=== PATIENT | female | born 1965 | race Caucasian/White ===

== ENCOUNTER 2017-12-26 12:10 | Emergency (ER) | payer OTHER ==
[2017-12-26] MEDS: KETOROLAC 30 MG INJ IV (14:33)
[2017-12-26 14:36] LABS: UR BACTERIA FEW /HPF (NONE SEEN); UR RBC 0 /HPF (0-5); UR WBC 1 /HPF (0-5)
[2017-12-26 14:40] LABS: ADD MAN DIFF? NO
[2017-12-26 14:43] LABS: ADD UMIC YES; UR ASCORBIC ACID NEGATIVE (NEGATIVE); UR BILIRUBIN (Dip) NEGATIVE (NEGATIVE); UR BLOOD (Dip) 1+ mg/dL (NEGATIVE); UR CLARITY CLEAR (CLEAR); UR COLOR YELLOW (YELLOW); UR GLUCOSE (Dip) NEGATIVE (NEGATIVE); UR KETONES (Dip) NEGATIVE (NEGATIVE); UR LEUKOCYTE ESTERASE (Dip) NEGATIVE Leu/ul (NEGATIVE); UR NITRITE (Dip) NEGATIVE (NEGATIVE); UR SPECIFIC GRAVITY (Dip) 1.011 (1.003-1.030); UR TOTAL PROTEIN (Dip) NEGATIVE (NEGATIVE); UR UROBILINOGEN (Dip) NEGATIVE (NEGATIVE)
[2017-12-26 14:44] LABS: WHITE BLOOD COUNT 5.3 10^3/ul (4.8-10.8)
[2017-12-26 14:44] LABS: BASOPHILS % 0.4 % (0.0-2.0); EOSINOPHILS # 0.1 10^3/ul (0.0-0.5); EOSINOPHILS % 2.3 % (0.0-7.0); HEMATOCRIT 35.2 % (37.0-47.0); HEMOGLOBIN 11.9 g/dl (12.0-16.0); LYMPHOCYTES # 1.2 10^3/ul (0.8-2.9); MEAN CORPUSCULAR HEMOGLOBIN 29.9 pg (29.0-33.0); MEAN CORPUSCULAR HGB CONC 33.8 g/dl (32.0-37.0); MEAN CORPUSCULAR VOLUME 88.4 fl (82.0-101.0); MEAN PLATELET VOLUME 10.9 fl (7.4-10.4); MONOCYTE # 0.3 10^3/ul (0.3-0.9); MONOCYTES % 6.1 % (0.0-11.0); NEUTROPHIL # 3.6 10^3/ul (1.6-7.5); PLATELET COUNT 246 10^3/UL (140-415); RED BLOOD COUNT 3.98 10^6/ul (4.20-5.40); RED CELL DISTRIBUTION WIDTH 12.8 % (11.5-14.5)
[2017-12-26 15:04] LABS: ALANINE AMINOTRANSFERASE 14 IU/L (13-69); ALBUMIN 4.3 g/dl (3.3-4.9); ALBUMIN/GLOBULIN RATIO 1.26; ALKALINE PHOSPHATASE 73 IU/L (42-121); ANION GAP 13 (8-16); ASPARTATE AMINO TRANSFERASE 18 IU/L (15-46); BLOOD UREA NITROGEN 13 mg/dl (7-20); CALCIUM 9.2 mg/dl (8.4-10.2); CARBON DIOXIDE 28 mmol/L (21-31); CHLORIDE 105 mmol/L (97-110); CREATININE 0.54 mg/dl (0.44-1.00); GLUCOSE 90 mg/dl (70-220); LIPASE 80 U/L (23-300); POTASSIUM 4.1 mmol/L (3.5-5.1); SODIUM 142 mmol/L (135-144); TOTAL PROTEIN 7.7 g/dl (6.1-8.1)
== END 2017-12-26 16:34 | disposition home or self-care (01) ==
LOC: FTE 12:10
DX: M54.41 Lumbago with sciatica, right side (principal); J45.909 Unspecified asthma, uncomplicated; I10 Essential (primary) hypertension
CPT/HCPCS: 36415; 76856; 80053; 81001; 83690; 85025; 93971; 96374; 99285-25

== ENCOUNTER 2018-04-15 16:00 | Emergency (ER) | payer OTHER ==
[2018-04-15 17:07] LABS: URINE BLOOD (Dip) POC Trace-lysed (NEGATIVE); URINE GLUCOSE (Dip) POC Negative (NEGATIVE); URINE KETONES (Dip) POC Negative (NEGATIVE); URINE LEUKOCYTE EST (Dip) POC Negative (NEGATIVE); URINE NITRITE (Dip) POC Negative (NEGATIVE); URINE TOTAL PROTEIN POC Negative (NEGATIVE)
[2018-04-15] MEDS: METOCLOPRAMIDE 10 MG INJ IV (17:30)
[2018-04-15] MEDS: DIPHENHYDRAMINE 50 MG INJ IV (17:31)
[2018-04-15] MEDS: SOD CHLORIDE 0.9% 1,000 ML IV (17:31)
[2018-04-15] MEDS: LORAZEPAM 2 MG INJ IV (19:08)
[2018-04-17 00:05] LABS: URINE BLOOD (Dip) POC Trace-lysed (NEGATIVE); URINE GLUCOSE (Dip) POC Negative (NEGATIVE); URINE KETONES (Dip) POC Negative (NEGATIVE); URINE LEUKOCYTE EST (Dip) POC Negative (NEGATIVE); URINE NITRITE (Dip) POC Negative (NEGATIVE); URINE TOTAL PROTEIN POC Negative (NEGATIVE)
== END 2018-04-15 20:02 | disposition home or self-care (01) ==
LOC: FTE 16:00
DX: R51 Headache (principal); F41.9 Anxiety disorder, unspecified; R45.851 Suicidal ideations; I10 Essential (primary) hypertension
CPT/HCPCS: 70450; 81003; 81025; 96374; 96375; 99285-25

== ENCOUNTER 2018-07-17 14:39 | Emergency (ER) | payer SELFPAY, OTHER ==
[2018-07-17] MEDS: LORAZEPAM 1 MG TAB PO (17:11)
[2018-07-17 17:58] LABS: FREE THYROXINE INDEX (Calc) 1.44 ug/ml (0.65-3.89); T3 UPTAKE 27.7 % (23.5-40.5); T4 (THYROXINE) 5.2 ug/dl (5.5-11.0)
[2018-07-17] MEDS: LORAZEPAM 2 MG INJ IM (19:36)
== END 2018-07-17 19:45 | disposition home or self-care (01) ==
LOC: FTE 14:39
DX: F41.9 Anxiety disorder, unspecified (principal); I10 Essential (primary) hypertension
CPT/HCPCS: 84436; 84479; 93005; 96372; 99284-25